=== PATIENT | female | born 1950 | race Caucasian/White ===

== ENCOUNTER → 2020-10-03 | Outpatient (CLI) | payer MEDICARE ==
[~2020-10-03] MED LIST: GADOBUTROL 10 MMOL/10 ML (GADAVIST) VIAL IV ONE
--- NOTE | 2020-10-04 07:40 | Diagnostic Imaging Report ---
EXAMINATION: MRI BREAST BILAT W W/O CON INDICATION: Problem solving MRI. Further evaluation of mammographic left breast mass without sonographic correlate. Patient recently found to have suspicious right lung mass, concerning for primary malignancy. TECHNIQUE: Utilizing a 1.5 [place] magnet, the patient was placed in the prone position with a dedicated breast coil in place. Axial STIR, T2 fat sat, T1 and T1 fat-sat images are obtained without contrast. Postcontrast high-resolution dynamic images are also obtained. Pre and post contrasted images are then evaluated with Kognitio for evaluation of possible angiogenesis. 8 mL of Gadavist gadolinium contrast material was administered intravenously. COMPARISON: Screening mammogram performed on 09/09/2020 and diagnostic mammogram and ultrasound performed on 09/15/2020. FINDINGS: RIGHT BREAST: The breast is composed of scattered fibroglandular tissue. There is mild background parenchymal enhancement, with scattered foci of enhancement also related to background. There is no suspicious mass or non-mass enhancement. There is no axillary or internal mammary adenopathy. LEFT BREAST: The breast is composed of scattered fibroglandular tissue. There is mild background parenchymal enhancement, with scattered foci of enhancement also related to background. At 3:00 approximately 7 cm posterior to the nipple, there is a 1.4 x 1.9 x 0.8 cm oval, circumscribed mass, which corresponds to findings on prior mammogram. This is intrinsically T1 hyperintense, T2 hypointense and does not demonstrate appreciable enhancement. There appears to be some degree of signal loss in this lesion between the T2 FSE and fat sat T2 FSE sequences, suggesting internal fat. There are some small enhancing masses that are T2 bright in the upper outer quadrant which are compatible with benign intramammary lymph nodes and correspond to mammography. Otherwise, no suspicious mass or non-mass enhancement. There is a prominent lymph node in the high axilla which demonstrates irregular focal cortical thickening measuring up to 10 mm (image 45 series 801). OTHER: The previously biopsied right upper lobe lung mass is partially visualized. IMPRESSION: There is a mass measuring up to 1.9 cm in the 3:00 left breast corresponding to the previously described mammographic mass. This is favored to represent a benign entity such as a hamartoma or proteinaceous/hemorrhagic cyst, however, given recent findings of presumed lung malignancy in the right upper lobe, biopsy of this mass is recommended to exclude malignancy/metastatic disease. As no definite correlate for this mass was seen on prior ultrasound, stereotactic guided biopsy is recommended. There is a prominent lymph node in the high left axilla with focal cortical thickening. This appears to maintain a fatty hilum and may be reactive in nature, especially if patient has recently had the COVID-19 vaccine. 2nd look (MRI-directed) ultrasound is recommended for further evaluation of this finding, with biopsy as indicated. There is no MR evidence of malignancy in the right breast. BI-RADS Category 4A: Low Suspicion for Malignancy RECOMMENDATIONS: 2nd look ultrasound for prominent right axillary lymph node, with biopsy as indicated. Biopsy of left breast mass using stereotactic guidance. Given that the patient is being recommended for left axillary ultrasound, repeat sonographic evaluation for the left breast mass could also be considered at that time to reassess for a suitable target for biopsy. Dictated by: Dictated on workstation # [id number]
== END ==
LOC: RAD 15:30
PROVIDERS: ATTEND Registered Nurse
DX: N60.02 Solitary cyst of left breast (principal); R92.8 Other abnormal and inconclusive findings on diagnostic imaging of breast; N63.25 Unspecified lump in the left breast, overlapping quadrants
CPT/HCPCS: 77049